=== PATIENT | male | born 1965 | race Two or more races ===

== ENCOUNTER 2016-12-18 17:30 | Emergency (ER) | payer BC ==
--- NOTE | 2016-12-18 19:45 | ER Document Report ---
ED Respiratory Problem - General Chief Complaint: Rib Pain Stated Complaint: RIGHT SIDE RIB PAIN Mode of Arrival: Ambulatory Information source: Patient TRAVEL OUTSIDE OF THE [place] IN LAST 30 DAYS: No - HPI Patient complains to provider of: Chest pain Onset: Other - 4 DAYS Quality of pain: Sharp Severity: Moderate Chest pain/discomfort: Right, Worse with deep breaths Associated symptoms: Hurts to breathe. denies: Ankle/leg swelling, Allergy/hay fever, Bloody cough, Chills, Congestion, Cough, Fever, Jaw pain, Leg/calf/joint pain, PND, Runny nose, Sinus pain/pressure, Wheezing Notes: Patient arrives with complaints of right rib pain. The patient was leaning over to get something off the floor of an airplane quickly when he hit his right ribs on the arm of the chair. This occurred 4 days ago. Continues to have pain to the right ribs and wanted to have this evaluated. He denies being on blood thinners. He denies any shortness of breath. The pain is worse with touch, movement, taking a deep breath. He denies any hemoptysis. No abdominal pain. No nausea, vomiting, diarrhea. No rash. He denies any other injuries or any other complaints at this time. - Related Data Allergies/Adverse Reactions: No Known Allergies Allergy (Verified 12/18/16 17:35) Past Medical History - Social History Smoking Status: Unknown if Ever Smoked Family History: Reviewed & Not Pertinent - Past Medical History Cardiac Medical History: Denies: Hx Coronary Artery Disease, Hx Heart Attack, Hx Hypertension Pulmonary Medical History: Denies: Hx Asthma, Hx Bronchitis, Hx COPD, Hx Pneumonia Neurological Medical History: Denies: Hx Cerebrovascular Accident, Hx Seizures Renal/ Medical History: Denies: Hx Peritoneal Dialysis Musculoskeltal Medical History: Denies Hx Arthritis Past Surgical History: Reports: Hx Abdominal Surgery - Immunizations Hx Diphtheria, Pertussis, Tetanus Vaccination: No Review of Systems - Review of Systems -: Yes All other systems reviewed and negative Physical Exam - Vital signs Vitals: Temp Pulse Resp BP Pulse Ox 97.6 F 82 16 171/87 H 98 12/18/16 17:36 12/18/16 17:36 12/18/16 17:36 12/18/16 17:36 12/18/16 17:36 - Notes Notes: GENERAL: alert, cooperative, nontoxic, no distress. HEAD: normocephalic, atraumatic EYES: conjunctiva pink without discharge, no external redness or swelling. EARS: no external swelling, no external redness NOSE: atraumatic, no external swelling MOUTH/THROAT: mucous membranes moist and pink, posterior pharynx without erythema, swelling, exudate. No trismus or drooling. NECK: soft, supple, full range of motion, no meningismus. CHEST: no distress, lungs clear and equal throughout. No wheezing, rales, rhonchi. Tenderness to palpation of the right lateral and anterior ribs. No crepitus. No bruising. No rash. CARDIAC: regular rate and rhythm, no murmur, normal capillary refill, normal pulses. No peripheral edema noted. ABDOMEN: Soft, nontender. No bruising, no flank tenderness. BACK: full range of motion, no CVA tenderness. EXTREMITIES: full range of motion of all extremities. No redness, no swelling. NEURO: alert and oriented x 3, no focal deficits, full range of motion of all extremities. PYSCH: appropriate mood, affect. Patient is cooperative. SKIN: pink, warm, dry, no rash. Course - Re-evaluation Re-evalutation: 12/18/16 21:07 Patient is nontoxic appearing with stable vitals. The patient was leaning over to pick something up on an airplane when he injured his right ribs on the armrest of the chair. He has had pain since. He has right chest wall tenderness to palpation. There is no crepitus or bruising. He is no abdominal tenderness on exam. Lungs are clear. O2 sat of 98%. He is in no distress. He is on no blood thinners. He has a history of MS and takes painkillers and baclofen on a daily basis. Right ribs with chest x-ray showed no acute fractures or effusions with no pneumothorax. Patient will be discharged home with a prescription for Naprosyn to augment his normal pain medication and muscle relaxer. Follow-up if not better in 2 weeks. Follow-up sooner for increased pain, fever, hemoptysis, difficulty breathing, or any further concerns. Patient was instructed to take 10 deep breaths every hour while awake to prevent pneumonia. No The patient is noted to have elevated blood pressure during today's emergency department visit. The patient was informed of this finding. The patient was instructed that this may be related to pre-hypertension and requires further evaluation with a primary care provider. The patient has no hypertensive symptoms at this time. The patient's emergency department workup and current diagnosis were explained to the patient and or family. Follow-up instructions were provided. Medications if prescribed were discussed. Instructions for when to return to the emergency department including specific worrisome symptoms were discussed with the patient and/or family. - Vital Signs Vital signs: Temp Pulse Resp BP Pulse Ox 97.6 F 82 16 171/87 H 98 12/18/16 17:36 12/18/16 17:36 12/18/16 17:36 12/18/16 17:36 12/18/16 17:36 - Diagnostic Test Radiology reviewed: Image reviewed, Reports reviewed - Right ribs with chest show no acute abnormality Discharge - Discharge Clinical Impression: Chest wall contusion Qualifiers: Encounter type: initial encounter Laterality: right Qualified Code(s): S20.211A - Contusion of right front wall of thorax, initial encounter Condition: Stable Disposition: HOME, SELF-CARE Instructions: Chest Wall Pain ([facility]) Additional Instructions: Take medications as prescribed. Take 10 deep breaths every hour while awake to prevent pneumonia. Follow-up if not better in 2 weeks, sooner for increased pain, fever, coughing up blood, difficulty breathing, or any further concerns. Your blood pressure was elevated during today's visit. Have this rechecked with your doctor. Prescriptions: Naproxen [Naprosyn] 500 mg PO BID #20 tablet Forms: Elevated Blood Pressure Referrals: [facility] [Provider Group] - Follow up as needed
--- NOTE | 2016-12-18 20:53 | RADIOLOGY REPORT (SQ) ---
EXAM DESCRIPTION: RIBS RIGHT W/PA CHEST COMPLETED DATE/TIME: 12/18/2016 8:00 pm REASON FOR STUDY: PAIN COMPARISON: None. TECHNIQUE: Frontal view of the chest and additional views of the right ribs acquired. NUMBER OF VIEWS: Four views LIMITATIONS: None. FINDINGS: FRONTAL CXR: No pneumothorax. No pleural effusion. No atelectasis or infiltrates. Linea r density is identified in the right lung base most consistent with atelectatic changes. RIBS: No displaced rib fractures. No lytic or blastic bony lesions. OTHER: No other significant finding. IMPRESSION: NO PNEUMOTHORAX. NO DISPLACED RIB FRACTURES. COMMENT: SITE OF TRAUMA/COMPLAINT MARKED/STAMP COMPLETED: Yes TECHNICAL DOCUMENTATION: JOB ID: [id number] [employer]- All Rights Reserved
[2016-12-18 22:28] VITALS: BP 149/82
== END 2016-12-18 21:25 | disposition home or self-care (01) ==
LOC: ER 17:30
DX: S20.211A Contusion of right front wall of thorax, initial encounter (principal); R07.81 Pleurodynia; X58.XXXA Exposure to other specified factors, initial encounter
CPT/HCPCS: 99283

== ENCOUNTER → 2018-02-05 | Outpatient (CLI) | payer BC ==
--- NOTE | 2018-02-05 14:55 | RADIOLOGY REPORT (SQ) ---
EXAM DESCRIPTION: CHEST PA/LATERAL COMPLETED DATE/TIME: 02/05/2018 2:41 pm REASON FOR STUDY: 3 WEEKS OF COUGH;FEVER COMPARISON: 12/18/2016 EXAM PARAMETERS: NUMBER OF VIEWS: two views TECHNIQUE: Digital Frontal and Lateral radiographic views of the chest acquired. RADIATION DOSE: NA LIMITATIONS: none FINDINGS: LUNGS AND PLEURA: There chronic changes in the right lung apex. No consolidation or effus ions. No pneumothorax. MEDIASTINUM AND HILAR STRUCTURES: No masses or contour abnormalities. HEART AND VASCULAR STRUCTURES: Heart normal size. No evidence for failure. BONES: No acute findings. HARDWARE: None in the chest. OTHER: No other significant finding. IMPRESSION: NO SIGNIFICANT RADIOGRAPHIC FINDING IN THE CHEST. TECHNICAL DOCUMENTATION: JOB ID: [id number] [employer]- All Rights Reserved Reading location - IP/workstation name: [email or web address]
== END ==
LOC: OD 14:18
PROVIDERS: ATTEND Family Medicine
DX: R05 Cough (principal); R50.9 Fever, unspecified; F17.200 Nicotine dependence, unspecified, uncomplicated
CPT/HCPCS: 71046